=== PATIENT | female | born 1985 | race Caucasian/White ===

== ENCOUNTER 2017-06-17 14:24 | Emergency (ER) | payer MEDICAID ==
[2017-06-17] MEDS ORDERED: Ketorolac 60 MG/2 ML SDV IM ONE (15:15)
--- NOTE | 2017-06-17 15:19 | EDM.PDOC ---
ED HPI GENERAL MEDICAL PROBLEM - General Chief Complaint: Back Pain or Injury Stated Complaint: L BACK PAIN Time Seen by Provider: 06/17/17 15:05 Source of Information: Reports: Patient, Family History Limitations: Reports: No Limitations - History of Present Illness INITIAL COMMENTS - FREE TEXT/NARRATIVE: 32-year-old female who was fine until she woke this morning and she stood up and realized she had a headache, she felt awful, chilled, low back pain in her legs felt weak. She then started hyperventilating and got numbness around her mouth and her hands started getting numb. As the day has gone on she's felt worse with a horrible headache, low backache, generalized aching and now has developed a fever. She's had a runny nose for the past 2 days but no cough, shortness of breath or nausea or vomiting. Her mother is just improving from a viral bronchitis she has had over the past week. She did not get influenza vaccinations. Onset: Sudden (Became ill fairly suddenly this morning) Severity: Moderate Associated Symptoms: Reports: Diaphoresis, Fever/Chills, Headaches, Malaise, Weakness. Denies: Chest Pain, Shortness of Breath Lower Back Pain Score (Numeric/FACES): 9 - Related Data Allergies Allergy/AdvReac Type Severity Reaction Status Date / Time No Known Allergies Allergy Verified 12/30/13 07:30 Home Meds: Home Meds Venlafaxine [Effexor] 25 mg PO BID 06/07/15 [History] Past Medical History [employer] History: Reports: Neurological History: Reports: Migraines Hematologic History: Reports: Anemia, Iron Deficiency - Past Surgical History GI Surgical History: Reports: Appendectomy Social & Family History - Tobacco Use Smoking Status *Q: Unknown Ever Smoked Years of Tobacco use: 7 Used Tobacco, but Quit: Yes Month Tobacco Last Used: 01/2013 Second Hand Smoke Exposure: No - Alcohol Use Days Per Week of Alcohol Use: 0 - Recreational Drug Use Recreational Drug Use: No ED ROS GENERAL - Review of Systems Review Of Systems: See Below Constitutional: Reports: Fever, Chills, Malaise, Weakness, Diaphoresis HEENT: Reports: Other (Facial paresthesias, numbness) Respiratory: Denies: Shortness of Breath, Cough Cardiovascular: Denies: Chest Pain Endocrine: Reports: Fatigue GI/Abdominal: Denies: Nausea, Vomiting : Reports: No Symptoms Musculoskeletal: Reports: Muscle Pain (Hurts all over, particularly her low back and headache) Neurological: Reports: Paresthesia (Hands and face) Psychiatric: Reports: Anxiety ED EXAM, GENERAL - Physical Exam Exam: See Below Exam Limited By: No Limitations General Appearance: Alert, Moderate Distress (Very ill-appearing female, uncomfortable) Throat/Mouth: Normal Inspection Head: Atraumatic Respiratory/Chest: No Respiratory Distress, Lungs Clear Cardiovascular: Regular Rate, Rhythm, Tachycardia GI/Abdominal: Soft, Non-Tender Extremities: Normal Inspection Neurological: Alert, Oriented Psychiatric: Depressed Mood Skin Exam: Warm, Dry Course - Vital Signs Last Recorded V/S: Last Vital Signs Temp 100.4 F 06/17/17 16:23 Pulse 109 H 06/17/17 16:17 Resp 16 06/17/17 16:17 BP 138/81 06/17/17 16:17 Pulse Ox 96 06/17/17 16:17 - Orders/Labs/Meds Labs: Laboratory Tests 06/17/17 06/17/17 06/17/17 Range/Units 15:14 15:25 15:25 WBC 5.2 (4.5-11.0) K/uL RBC 4.45 (3.30-5.50) M/uL Hgb 12.0 (12.0-15.0) g/dL Hct 36.1 (36.0-48.0) % MCV 81 (80-98) fL MCH 27 (27-31) pg MCHC 33 (32-36) % Plt Count 194 (150-400) K/uL Neut % (Auto) 86 H (36-66) % Lymph % (Auto) 6 L (24-44) % [place] % (Auto) 7 H (2-6) % Eos % (Auto) 1 L (2-4) % Baso % (Auto) 0 (0-1) % Sodium 140 (140-148) mmol/L Potassium 3.7 (3.6-5.2) mmol/L Chloride 105 (100-108) mmol/L Carbon Dioxide 23 (21-32) mmol/L Anion Gap 12.0 (5.0-14.0) mmol/L BUN 8 (7-18) mg/dL Creatinine 0.9 (0.6-1.0) mg/dL Est Cr Clr Drug Dosing 85.56 mL/min Estimated GFR (MDRD) > 60 (>60) Glucose 100 (74-106) mg/dL Calcium 9.2 (8.5-10.1) mg/dL Total Bilirubin 0.6 (0.2-1.0) mg/dL AST 20 (15-37) U/L ALT 33 (12-78) U/L Alkaline Phosphatase 52 (46-116) U/L Total Protein 7.0 (6.4-8.2) g/dL Albumin 4.0 (3.4-5.0) g/dL Globulin 3.0 (2.3-3.5) g/dL Albumin/Globulin Ratio 1.3 (1.2-2.2) Urine Color Yellow Urine Appearance Clear Urine pH 7.0 (4.5-8.0) Ur Specific [place] 1.010 (1.008-1.030) Urine Protein Negative (NEGATIVE) mg/dL Urine Glucose (UA) Normal (NEGATIVE) mg/dL Urine Ketones Negative (NEGATIVE) mg/dL Urine Occult Blood Negative (NEGATIVE) Urine Nitrite Negative (NEGATIVE) Urine Bilirubin Negative (NEGATIVE) Urine Urobilinogen Normal (NORMAL) mg/dL Ur Leukocyte Esterase Negative (NEGATIVE) Urine RBC 0-5 (0-5) Urine WBC 0-5 (0-5) Ur Epithelial Cells Rare Amorphous Sediment Not seen Urine Bacteria Few Urine Mucus Not seen Meds: Medications Discontinued Medications Generic Name Dose Route Start Last Admin Trade Name Freq PRN Reason Stop Dose Admin Ketorolac Tromethamine 60 mg 06/17/17 15:15 06/17/17 15:29 Toradol IM 06/17/17 15:16 60 mg ONETIME ONE Administration - Re-Assessments/Exams Free Text/Narrative Re-Assessment/Exam: 06/17/17 15:19 Influenza antigens were obtained, as well as a UA, CBC and CMP. 60 mg of Toradol IM was given to the patient. 06/17/17 16:12 CBC and CMP were relatively normal, UA was completely clear. Patient felt much better after the Toradol IM injection. Her influenza A returned strongly positive. A prescription was written for Tamiflu 75 mg twice a day for 5 days and the patient is going to take it to the pharmacy to see if she can afford the medication. Departure - Departure Time of Disposition: 16:23 Disposition: Home, Self-Care 01 Condition: Fair Clinical Impression: Influenza A - Discharge Information Instructions: Influenza, Adult, [id number] Referrals: Jillian Aviles CNM [Primary Care Provider] - Forms: ED Department Discharge Care Plan Goals: Rest, fluids, a regular dose of ibuprofen or naproxen will help. Over-the- counter cold medicines for symptoms and Tamiflu as prescribed if able. Return if worsening such as difficulty breathing or persistent vomiting.
[2017-06-17 16:18] VITALS: BP 138/81
== END 2017-06-17 16:24 | disposition home or self-care (01) ==
LOC: JP.ED 14:24
DX: J10.1 Influenza due to other identified influenza virus with other respiratory manifestations (principal); Z87.891 Personal history of nicotine dependence
CPT/HCPCS: 36415; 80053; 81001; 85025; 87804; 96372; 99284; J1885; 99283

== ENCOUNTER 2021-12-06 11:18 | Emergency (ER) | payer MEDICAID ==
[2021-12-06 12:34] VITALS: BP 132/91; PULSE 72
[2021-12-06 14:08] LABS: ESTIMATED GFR 99 mL/min (>60)
[2021-12-06 15:00] LABS: CORONAVIRUS COVID-19 NAA NEGATIVE (NEGATIVE)
== END 2021-12-06 15:55 | disposition home or self-care (01) ==
LOC: JP.ED 11:18
DX: R55 Syncope and collapse (principal); Z20.822 Contact with and (suspected) exposure to COVID-19
CPT/HCPCS: 0241U; 36415; 70450; 70450-26; 80053; 81001; 85025; 99282; 99284-25

== ENCOUNTER 2021-12-11 15:40 | Emergency (ER) | payer MEDICAID ==
[2021-12-11] MEDS ORDERED: Ketorolac 30 MG/ML SDV IM ONE (18:01)
[2021-12-11 18:10] VITALS: BP 138/88; PULSE 98
== END 2021-12-11 19:19 | disposition home or self-care (01) ==
LOC: JP.ED 15:40
DX: N20.1 Calculus of ureter (principal); R31.29 Other microscopic hematuria; R55 Syncope and collapse; J18.9 Pneumonia, unspecified organism; D64.9 Anemia, unspecified
CPT/HCPCS: 74176; 81001; 93005; 93010; 96372; 99283; 99284-25; J1885

== ENCOUNTER 2021-12-14 19:55 | Inpatient (IN) | payer MEDICAID ==
[2021-12-14] MEDS ORDERED: Acetaminophen 325 MG Tab PO ONE (21:10)
[2021-12-14 21:45] LABS: ESTIMATED GFR 86 mL/min (>60)
[2021-12-14 22:02] LABS: CORONAVIRUS COVID-19 NAA NEGATIVE (NEGATIVE)
[2021-12-14] MEDS ORDERED: Potassium Chloride 20 MEQ in Premix Bag 1 BAG IV ONE (22:26)
[2021-12-14] MEDS ORDERED: Iopamidol 755 Mg/ML 100 ML Bottle IV SCH (22:30)
[2021-12-14] MEDS ORDERED: Sodium Chloride 0.9% 75 ML IV SCH (22:30)
[2021-12-14] MEDS ORDERED: Doxycycline 100 MG in Sodium Chloride 0.9% 100 ML IV SCH (22:30)
[2021-12-14] MEDS ORDERED: cefTRIAXone 1 GM in Sodium Chloride 0.9% 50 ML IV SCH (23:00)
[2021-12-14] MEDS ORDERED: Lidocaine 1% 5 ML VIAL INJECT ONE (23:32)
[2021-12-15] MEDS ORDERED: Ibuprofen 600 MG Tab PO PRN (00:31)
[2021-12-15] MEDS ORDERED: Enoxaparin 40 MG/0.4 ML Syringe SUBCUT SCH (00:31)
[2021-12-15] MEDS ORDERED: Albuterol 0.083% 2.5 MG/3 ML Neb Soln NEB PRN (00:31)
[2021-12-15] MEDS ORDERED: Docusate Sodium 100 MG Cap PO PRN (00:31)
[2021-12-15] MEDS ORDERED: methylPREDNISolone Sodium Succinate 125 MG/2 ML SDV IVPUSH ONE (00:31)
[2021-12-15] MEDS ORDERED: Albuterol/Ipratropium 3.0-0.5 MG/3 ML Neb Soln NEB PRN (00:31)
[2021-12-15] MEDS ORDERED: Bisacodyl 5 MG Tab PO PRN (00:31)
[2021-12-15] MEDS ORDERED: Ondansetron 4 MG Tab.DIS PO PRN (00:31)
[2021-12-15] MEDS ORDERED: Morphine 2 MG/ML SYRINGE IVPUSH PRN (00:31)
[2021-12-15] MEDS ORDERED: Sodium Chloride 0.9% 1,000 ML IV SCH (00:31)
[2021-12-15] MEDS: Acetaminophen 325 MG Tab PO PRN ×4 (02:28→21:29)
[2021-12-15] MEDS: methylPREDNISolone Sodium Succinate 40 MG/1 ML SDV IVPUSH SCH ×4 (03:12→21:18)
[2021-12-15] MEDS: Hydrochlorothiazide 12.5 MG Cap PO SCH (08:49)
[2021-12-15] MEDS ORDERED: Pantoprazole 40 MG Vial IV SCH (09:00)
[2021-12-15] MEDS: Doxycycline 100 MG in Sodium Chloride 0.9% 100 ML IV SCH (11:03)
[2021-12-15] MEDS: oxyCODONE 5 MG Tab PO PRN ×2 (15:09→21:28)
[2021-12-15] MEDS: Enoxaparin 40 MG/0.4 ML Syringe SUBCUT SCH (21:18)
[2021-12-15] MEDS: Sertraline 50 MG Tab PO SCH (21:18)
[2021-12-15] MEDS: cefTRIAXone 1 GM in Sodium Chloride 0.9% 50 ML IV SCH (23:44)
[2021-12-16] MEDS: Doxycycline 100 MG in Sodium Chloride 0.9% 100 ML IV SCH ×2 (00:27→10:50)
[2021-12-16] MEDS: Melatonin 3 MG Tab PO PRN ×2 (00:32→21:45)
[2021-12-16] MEDS: methylPREDNISolone Sodium Succinate 40 MG/1 ML SDV IVPUSH SCH (04:13)
[2021-12-16] MEDS: predniSONE 20 MG Tab PO SCH (08:22)
[2021-12-16] MEDS: Hydrochlorothiazide 12.5 MG Cap PO SCH (08:23)
[2021-12-16] MEDS: Pantoprazole 40 MG Tab.CR PO SCH (08:23)
[2021-12-16] MEDS ORDERED: Ketorolac 30 MG/ML SDV IVPUSH ONE (11:00)
[2021-12-16] MEDS: Acetaminophen 325 MG Tab PO PRN ×2 (16:45→21:45)
[2021-12-16] MEDS: Doxycycline 100 MG Cap PO SCH (21:40)
[2021-12-16] MEDS: Sertraline 50 MG Tab PO SCH (21:40)
[2021-12-16] MEDS: Enoxaparin 40 MG/0.4 ML Syringe SUBCUT SCH (21:40)
[2021-12-16] MEDS: cefTRIAXone 1 GM in Sodium Chloride 0.9% 50 ML IV SCH (22:10)
[2021-12-17] MEDS: Acetaminophen 325 MG Tab PO PRN (05:22)
[2021-12-17] MEDS: Pantoprazole 40 MG Tab.CR PO SCH (07:20)
[2021-12-17] MEDS: predniSONE 20 MG Tab PO SCH (08:05)
[2021-12-17] MEDS: Hydrochlorothiazide 12.5 MG Cap PO SCH (08:05)
[2021-12-17] MEDS: Doxycycline 100 MG Cap PO SCH (08:05)
[2021-12-17 08:14] VITALS: BP 120/66; PULSE 94
[2021-12-17] MEDS ORDERED: Ketorolac 30 MG/ML SDV IVPUSH ONE (10:00)
== END 2021-12-17 11:44 | disposition home or self-care (01) | DRG 195 ==
LOC: JP.ED 19:55 → JP.MS 22:36
PROVIDERS: ADMIT Internal Medicine; ATTEND Internal Medicine
DX: J15.9 Unspecified bacterial pneumonia (principal); E87.6 Hypokalemia; D64.9 Anemia, unspecified; I10 Essential (primary) hypertension; Z20.822 Contact with and (suspected) exposure to COVID-19; F32.A Depression, unspecified; Z86.16 Personal history of COVID-19; Z28.310 Unvaccinated for COVID-19; Z79.899 Other long term (current) drug therapy
CPT/HCPCS: 0241U; 36415; 71046; 71046-26; 71275; 80048; 80053; 81001; 81025; 83605; 84145; 85025; 85379; 86140; 87040; 87086; 99222; 99232; 99238; 99284; 99285-25; A9270-GY; C9113; J0696; J1650; J1885; J2920; J2930; J3480; J3490; J7030; J7512; Q9967

== ENCOUNTER 2021-12-20 01:33 | Inpatient (IN) | payer MEDICAID ==
[2021-12-20] MEDS ORDERED: Sodium Chloride 0.9% 10 ML Syringe FLUSH PRN ×2 (02:21→15:33)
[2021-12-20] MEDS ORDERED: Acetaminophen 1,000 MG in Premix Bag 1 BAG IV ONE (02:24)
[2021-12-20 03:11] LABS: ESTIMATED GFR 116 mL/min (>60)
[2021-12-20 03:14] LABS: TROPONIN I HIGH SENSITIVITY 7.4 pg/mL (<=60.3)
[2021-12-20] MEDS ORDERED: Vancomycin 1.6 GM in Sodium Chloride 0.9% 250 ML IV ONE (03:24)
[2021-12-20] MEDS ORDERED: Piperacillin/Tazobactam 4.5 GM in Sodium Chloride 0.9% 50 ML IV ONE ×2 (03:25→03:47)
[2021-12-20] MEDS ORDERED: Water For Injection, Sterile 20 ML ONE ×2 (03:44→03:46)
[2021-12-20 04:36] LABS: CORONAVIRUS COVID-19 NAA NEGATIVE (NEGATIVE)
[2021-12-20] MEDS ORDERED: methylPREDNISolone Sodium Succinate 125 MG/2 ML SDV IVPUSH ONE (06:31)
[2021-12-20] MEDS ORDERED: Codeine/guaiFENesin 10-100 MG/5 ML Syrup 5 ML Cup PO PRN (06:59)
[2021-12-20] MEDS ORDERED: Docusate Sodium 100 MG Cap PO PRN (08:33)
[2021-12-20] MEDS ORDERED: Bisacodyl 5 MG Tab PO PRN (08:33)
[2021-12-20] MEDS ORDERED: Morphine 2 MG/ML SYRINGE IVPUSH PRN (08:33)
[2021-12-20] MEDS ORDERED: Promethazine 25 MG Tab PO PRN (08:33)
[2021-12-20] MEDS ORDERED: Ibuprofen 600 MG Tab PO PRN (08:33)
[2021-12-20] MEDS ORDERED: oxyCODONE 5 MG Tab PO PRN (08:33)
[2021-12-20] MEDS ORDERED: LORazepam 2 MG/ML SDV IV PRN (08:33)
[2021-12-20] MEDS ORDERED: Albuterol 0.083% 2.5 MG/3 ML Neb Soln NEB PRN (08:33)
[2021-12-20] MEDS ORDERED: Pantoprazole 40 MG Vial IV SCH (09:00)
[2021-12-20] MEDS: Enoxaparin 40 MG/0.4 ML Syringe SUBCUT SCH (09:13)
[2021-12-20] MEDS ORDERED: Levofloxacin/Dextrose 5%-Water 750 MG in Premix Bag 1 BAG IV SCH (09:30)
[2021-12-20] MEDS: Albuterol/Ipratropium 3.0-0.5 MG/3 ML Neb Soln NEB SCH ×3 (11:07→20:49)
[2021-12-20] MEDS: Acetaminophen 325 MG Tab PO PRN ×2 (12:36→20:49)
[2021-12-20] MEDS ORDERED: methylPREDNISolone Sodium Succinate 40 MG/1 ML SDV IVPUSH SCH (14:00)
[2021-12-20] MEDS ORDERED: Sodium Chloride 0.9% 100 ML IV ONE (15:33)
[2021-12-20] MEDS ORDERED: Iopamidol 755 Mg/ML 100 ML Bottle IV SCH (15:45)
[2021-12-20] MEDS: Piperacillin/Tazobactam/Dext 3.375 GM in Premix Bag 1 BAG IV SCH ×2 (16:10→21:38)
[2021-12-20] MEDS: Sertraline 50 MG Tab PO SCH (20:51)
[2021-12-20] MEDS: Sodium Chloride 0.9% 1,000 ML IV SCH (20:52)
[2021-12-21] MEDS: Piperacillin/Tazobactam/Dext 3.375 GM in Premix Bag 1 BAG IV SCH ×4 (03:40→21:45)
[2021-12-21] MEDS: Albuterol/Ipratropium 3.0-0.5 MG/3 ML Neb Soln NEB SCH ×4 (07:17→21:45)
[2021-12-21] MEDS: Levofloxacin/Dextrose 5%-Water 750 MG in Premix Bag 1 BAG IV SCH (07:38)
[2021-12-21] MEDS: Sodium Chloride 0.9% 1,000 ML IV SCH (07:39)
[2021-12-21] MEDS: Enoxaparin 40 MG/0.4 ML Syringe SUBCUT SCH (09:42)
[2021-12-21] MEDS: Pantoprazole 40 MG Tab.CR PO SCH (12:47)
[2021-12-21] MEDS ORDERED: Sodium Ferric Gluconate Cmplex 250 MG in Sodium Chloride 0.9% 100 ML IV ONE (14:00)
[2021-12-21] MEDS: Acetaminophen 325 MG Tab PO PRN (14:49)
[2021-12-21] MEDS ORDERED: diphenhydrAMINE 50 MG/ML SDV IVPUSH ONE (16:10)
[2021-12-21] MEDS ORDERED: methylPREDNISolone Sodium Succinate 40 MG/1 ML SDV IVPUSH ONE (16:10)
[2021-12-21] MEDS: Ferrous Sulfate 325 MG Tab PO SCH (17:00)
[2021-12-21] MEDS: Sertraline 50 MG Tab PO SCH (20:05)
[2021-12-22] MEDS: Piperacillin/Tazobactam/Dext 3.375 GM in Premix Bag 1 BAG IV SCH ×4 (03:14→21:08)
[2021-12-22] MEDS: Albuterol/Ipratropium 3.0-0.5 MG/3 ML Neb Soln NEB SCH ×4 (06:58→21:07)
[2021-12-22] MEDS: Ferrous Sulfate 325 MG Tab PO SCH ×2 (08:43→16:45)
[2021-12-22] MEDS: Levofloxacin/Dextrose 5%-Water 750 MG in Premix Bag 1 BAG IV SCH (08:44)
[2021-12-22] MEDS: Pantoprazole 40 MG Tab.CR PO SCH (08:44)
[2021-12-22] MEDS: Enoxaparin 40 MG/0.4 ML Syringe SUBCUT SCH (08:44)
[2021-12-22] MEDS ORDERED: Sodium Ferric Gluconate Cmplex 250 MG in Sodium Chloride 0.9% 100 ML IV ONE (14:00)
[2021-12-22] MEDS: Acetaminophen 325 MG Tab PO PRN (18:53)
[2021-12-22] MEDS: Sertraline 50 MG Tab PO SCH (21:09)
[2021-12-23] MEDS: Piperacillin/Tazobactam/Dext 3.375 GM in Premix Bag 1 BAG IV SCH ×2 (03:31→09:49)
[2021-12-23] MEDS: Albuterol/Ipratropium 3.0-0.5 MG/3 ML Neb Soln NEB SCH ×4 (07:13→21:43)
[2021-12-23] MEDS: Ferrous Sulfate 325 MG Tab PO SCH ×2 (07:25→18:07)
[2021-12-23] MEDS: Pantoprazole 40 MG Tab.CR PO SCH (07:25)
[2021-12-23] MEDS: Levofloxacin/Dextrose 5%-Water 750 MG in Premix Bag 1 BAG IV SCH (07:25)
[2021-12-23] MEDS: Enoxaparin 40 MG/0.4 ML Syringe SUBCUT SCH (09:49)
[2021-12-23] MEDS: Sertraline 50 MG Tab PO SCH (21:44)
[2021-12-24] MEDS: Albuterol/Ipratropium 3.0-0.5 MG/3 ML Neb Soln NEB SCH ×2 (07:03→10:38)
[2021-12-24] MEDS: Pantoprazole 40 MG Tab.CR PO SCH (07:38)
[2021-12-24] MEDS: Levofloxacin/Dextrose 5%-Water 750 MG in Premix Bag 1 BAG IV SCH (07:38)
[2021-12-24 08:58] VITALS: BP 98/62; PULSE 71
[2021-12-24] MEDS: Ferrous Sulfate 325 MG Tab PO SCH (08:59)
[2021-12-24] MEDS: Enoxaparin 40 MG/0.4 ML Syringe SUBCUT SCH (08:59)
== END 2021-12-24 12:00 | disposition home or self-care (01) | DRG 193 ==
LOC: JP.ED 01:33 → JP.ICU 06:21
PROVIDERS: ADMIT Hospitalist; ATTEND Hospitalist
DX: J18.9 Pneumonia, unspecified organism (principal); J96.01 Acute respiratory failure with hypoxia; D50.9 Iron deficiency anemia, unspecified; R59.0 Localized enlarged lymph nodes; Z20.822 Contact with and (suspected) exposure to COVID-19; I10 Essential (primary) hypertension; G43.909 Migraine, unspecified, not intractable, without status migrainosus; F32.A Depression, unspecified; Z90.49 Acquired absence of other specified parts of digestive tract; Z79.899 Other long term (current) drug therapy; Z87.01 Personal history of pneumonia (recurrent); Z87.440 Personal history of urinary (tract) infections; Z86.16 Personal history of COVID-19
CPT/HCPCS: 0241U; 36415; 71045; 71275; 80048; 80202; 82607; 82728; 82746; 82803; 83550; 83605; 83615; 83880; 84145; 84484; 85018; 85025; 85045; 86140; 87040; 87070; 87205; 93306; 94640; 96365; 96366; 96375; 99222; 99232; 99238; 99284; 99285-25; A9270-GY; C9113; J0131; J1200; J1650; J1956; J2543; J2916; J2920; J2930; J3370; J3490; J7030; J7050; J7620; Q9967

== ENCOUNTER 2023-03-03 19:32 | Emergency (ER) | payer MEDICAID ==
[2023-03-03] MEDS ORDERED: hydrALAZINE 25 MG Tab PO STA (20:28)
[2023-03-03 20:40] LABS: BASOPHILS PERCENT AUTO 0.3 % (0.1-1.3); EOSINOPHILS ABSOLUTE AUTO 0.16 K/uL (0.00-0.40); EOSINOPHILS PERCENT AUTO 2.3 % (0.0-5.4); HEMATOCRIT 39.5 % (34.3-46.0); HEMOGLOBIN 13.4 g/dL (11.2-15.5); IMMATURE GRAN PERCENT AUTO 0.3 % (0.0-0.7); LYMPHOCYTES ABSOLUTE AUTO 2.37 K/uL (0.8-3.3); LYMPHOCYTES PERCENT AUTO 34.1 % (11.4-47.7); MEAN CORPUSCULAR HEMOGLOBIN 26.6 pg (31.6-35.5); MEAN CORPUSCULAR HGB CONC 33.9 g/dL (31.6-35.5); MEAN CORPUSCULAR VOLUME 78.5 fL (81.4-99.0); MONOCYTES ABSOLUTE AUTO 0.37 K/uL (0.20-0.90); MONOCYTES PERCENT AUTO 5.3 % (3.3-12.6); NEUTROPHILS PERCENT AUTO 57.7 % (40.0-78.1); PLATELET COUNT,PLT 263 K/uL (130-375); RED BLOOD CELL COUNT 5.03 M/uL (3.77-5.24); WHITE BLOOD CELL COUNT,WBC 6.9 K/uL (3.2-11.0)
[2023-03-03 20:42] LABS: BASOPHILS ABSOLUTE AUTO 0.02 K/uL (0.00-0.10); IMMATURE GRAN ABSOLUTE AUTO 0.02 K/uL (0.00-0.23)
[2023-03-03 21:09] LABS: A/G RATIO 1.1 (1.2-2.2); ALANINE AMINOTRANSFERASE,ALT 25 U/L (12-78); ALBUMIN 3.9 g/dL (3.4-5.0); ALKALINE PHOSPHATASE 53 U/L (46-116); ASPARTATE AMNIOTRANSFERASE,AST 13 U/L (15-37); BILIRUBIN TOTAL 0.4 mg/dL (0.2-1.0); BLOOD UREA NITROGEN,BUN 10 mg/dL (7-18); CALCIUM 8.9 mg/dL (8.5-10.1); CARBON DIOXIDE,CO2 26 mmol/L (21-32); CHLORIDE,CL 105 mmol/L (100-108); CREATININE 0.8 mg/dL (0.6-1.0); EST CRCL DRUG DOSING (CG) 91.01 mL/min; ESTIMATED GFR 98 mL/min (>60); GLUCOSE RANDOM 97 mg/dL (74-106); POTASSIUM,K 3.4 mmol/L (3.6-5.2); PROTEIN TOTAL,TP 7.4 g/dL (6.4-8.2); SODIUM,NA 140 mmol/L (140-148); TSH ULTRASENSITIVE 2.009 uIU/mL (0.358-3.740)
[2023-03-03 21:10] LABS: ANION GAP 12.4 mmol/L (5.0-14.0); TROPONIN I HIGH SENSITIVITY < 4.0 pg/mL (<=60.3)
[2023-03-03 22:00] VITALS: BP 140/100; PULSE 80
== END 2023-03-03 22:04 | disposition home or self-care (01) ==
LOC: JP.ED 19:32
DX: I16.0 Hypertensive urgency (principal); I10 Essential (primary) hypertension; Z79.899 Other long term (current) drug therapy; Z88.8 Allergy status to other drugs, medicaments and biological substances
CPT/HCPCS: 36415; 80053; 84443; 84484; 85025; 93005; 99283; A9270